=== PATIENT | female | born 1935 | race Caucasian/White ===

== ENCOUNTER 2017-08-18 09:21 | Day surgery (SDC) | payer MEDICARE ==
[2017-08-17 17:28] VITALS: BMI 24.8
[2017-08-18] MEDS ORDERED: CEFAZOLIN/Water 2 GM/20 ML SYRINGE ONE (10:29)
[2017-08-18] MEDS ORDERED: Fentanyl 100 MCG/2 ML VIAL ONE (12:47)
[2017-08-18] MEDS ORDERED: Ophthalmic Irrigation Solution 0 ML ONE (13:15)
[2017-08-18] MEDS ORDERED: Bupivacaine/Epinephrine 0.25% 30 ML VIAL ONE (13:15)
[2017-08-18] MEDS ORDERED: Neomycin-Polymyxin 1 ML AMP ONE (13:15)
[2017-08-18] MEDS ORDERED: Propofol 1,000 MG/100 ML VIAL IV ONE (13:16)
[2017-08-18] MEDS ORDERED: Ondansetron HCl/PF 4 MG/2 ML Vial ONE (14:49)
[2017-08-18] MEDS ORDERED: PROPOFOL 200 MG/20 ML VIAL ONE (14:49)
[2017-08-18] MEDS ORDERED: PHENYLEPHRINE-NS 100 MCG/ML 10 ML SYRINGE ONE (14:49)
[2017-08-18] MEDS ORDERED: Lidocaine 1% PF 5 ML VIAL ONE (14:49)
--- NOTE | 2017-08-18 15:56 | OP ---
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 PROCEDURES PERFORMED: 1. Wide excision squamous cell carcinoma right forehead (1.8 cm including adequate margins) (36236). 2. Complex closure right forehead (6 cm) ([id number]). PROCEDURE IN DETAIL: Following induction of adequate anesthesia, the patient was prepped and draped in the usual sterile fashion in the supine position. The right forehead squamous cell carcinoma was widely excised including adequate margins. Frozen section analysis came back as margin was clear. T he large defect of the right forehead could not be closed primarily without undue tension. To facilitate closure, the entire width of the forehead from temporal line of fusion to temporal line of fusion, approximately 15 cm total was undermined in a subgaleal fashion. This allowed for closur e with 3-0 Monocryl suture and 4-0 Monocryl suture with dog-ears being taken out superiorly and infer iorly. The length of closure was approximately was 6 cm. The patient tolerated the procedure well.
== END 2017-08-18 16:20 | disposition home or self-care (01) ==
LOC: SDC 09:21
PROVIDERS: ATTEND Plastic Surgery
PROC: 0HB1XZZ Excision of Face Skin, External Approach (ICD-10-PCS; principal; 2017-08-18)
DX: C44.329 Squamous cell carcinoma of skin of other parts of face (principal); Z88.2 Allergy status to sulfonamides
CPT/HCPCS: 88305; 88331; 88332; J2001; J2405; J2704; J3010

== ENCOUNTER 2017-09-07 04:02 | Emergency (ER) | payer MEDICARE ==
[2017-09-07 05:00] LABS: #Basophils 0.1 thou/uL (0.0-0.2); #Eosinphils 0.1 thou/uL (0.0-0.7); #Lymphocytes 2.5 thou/uL (1.20-3.40); #Monocytes 0.7 thou/uL (0.11-0.59); #Neutrophils 5.6 thou/uL (1.40-6.50); %Basophils 1.1 % (0.0-1.0); %Eosinophils 0.6 % (0.0-10.0); %Lymphocytes 27.6 % (21.0-51.0); %Monocytes 8.2 % (0.0-10.0); %Neutrophils 62.5 % (42.0-75.0); Hemoglobin 12.7 g/dL (12.0-16.0); Mean Corpuscular HGB CONC 34.4 g/dL (32.0-36.0); Mean Corpuscular Hemoglobin 31.1 pg (27.0-31.0); Mean Corpuscular Volume 90.4 fl (81.0-99.0); Mean Platelet Volume 6.2 fL (7.4-10.4); Platelet Count 188 thou/uL (130-400); RBC Distribution Width 12.3 % (11.5-14.5)
[2017-09-07 05:13] LABS: ALT (SGPT) 14 U/L (8-55); AST (SGOT) 21 U/L (5-34); Albumin 4.2 g/dL (3.4-4.8); Alkaline Phosphatase 71 U/L (40-150); Anion Gap 7 mmol/L (10-20); BUN (Urea Nitrogen) 9 mg/dL (9.8-20.1); Bilirubin, Total 0.9 mg/dL (0.2-1.2); Calc. Creatinine Clearance 0 mL/min (70-130); Calcium 9.6 mg/dL (7.8-10.44); Carbon Dioxide 28 mmol/L (23-31); Chloride 97 mmol/L (98-107); Estimated GFR-MDRD 61; Globulin 2.9 g/dL (2.4-3.5); Glucose 136 mg/dL (83-110); Potassium 3.3 mmol/L (3.5-5.1); Protein, Total 7.1 g/dL (6.0-8.3); Sodium 129 mmol/L (136-145)
[2017-09-07 06:24] LABS: Bilirubin Negative (Negative); Blood, Urine Trace (Negative); Clarity CLEAR (Clear); Glucose, Urine (Dipstick) Negative (Negative); Leukocyte Negative (Negative); Nitrite Negative (Negative); Protein, Urine (Dipstick) Negative (Neg-Trace); Specific Gravity, Urine 1.008 (1.002-1.036); Urobilinogen 0.2 mg/dL (0.2-1.0)
[2017-09-07 06:29] LABS: Bacteria/HPF None Seen HPF (None Seen); Hyaline Casts/LPF 0-3 HYALINE CAST LPF (0-3 Hyaline); Pathc Cast-AUWi Flag 0.87 (0-2.49); RBC/HPF 0-3 HPF (0-3); Squamous Epithelial 0-3 HPF (0-3); WBC/HPF 0-3 HPF (0-3)
== END 2017-09-07 06:21 | disposition home or self-care (01) ==
LOC: ERS 04:02
DX: E87.1 Hypo-osmolality and hyponatremia (principal); E03.9 Hypothyroidism, unspecified; I10 Essential (primary) hypertension; F32.9 Major depressive disorder, single episode, unspecified; Z79.899 Other long term (current) drug therapy
CPT/HCPCS: 36415; 80053; 81003; 81015; 85025; 96360